=== PATIENT | female | born 1985 | race Two or more races ===

== ENCOUNTER 2017-11-06 10:26 | Outpatient (CLI) | payer OTHER | END 2017-11-06 10:31 | disposition home or self-care (01) | LOC: RX STUDY 10:26 | DX: Q51.828 Other congenital malformations of cervix (principal) ==

== ENCOUNTER 2018-07-09 14:36 | Outpatient (CLI) | payer OTHER | END 2018-07-09 15:14 | disposition home or self-care (01) | LOC: RAD 14:36 | DX: R05 Cough (principal) ==

== ENCOUNTER 2022-08-10 09:00 | Outpatient (CLI) | payer OTHER | END 2022-08-10 09:09 | disposition home or self-care (01) | LOC: SONOGRAMA 09:00 | PROVIDERS: ATTEND Obstetrics & Gynecology Reproductive Endocrinology | DX: N93.8 Other specified abnormal uterine and vaginal bleeding (principal) ==

== ENCOUNTER 2024-03-20 11:14 | Outpatient (CLI) | payer OTHER | END 2024-03-20 11:25 | disposition home or self-care (01) | LOC: MAMO-SONO 11:14 | PROVIDERS: ATTEND Obstetrics & Gynecology | DX: N64.4 Mastodynia (principal); Z80.3 Family history of malignant neoplasm of breast ==